=== PATIENT | female | born 1955 | race Caucasian/White ===

== ENCOUNTER 2018-10-10 07:10 | Day surgery (SDC) | payer OTHER ==
[2018-10-10] MEDS ORDERED: LACTATED RINGERS 1,000 ML IV ONE (07:15)
[2018-10-10] MEDS ORDERED: BUPIVACAINE 0.25%-EPI 1:200000 PF 30 ML VIAL ONE (07:20)
[2018-10-10] MEDS ORDERED: EPINEPHrine 1 MG/ML AMP ONE (07:22)
[2018-10-10] MEDS ORDERED: ceFAZolin 2 GM/50 ML 2 GM/50 ML BAG IV ONE (07:22)
[2018-10-10 07:54] LABS: BASOPHILS # (AUTO) 0.1 10^3/uL (0.0-0.1); EOSINOPHILS # (AUTO) 0.1 10^3/uL (0.0-0.7); EOSINOPHILS % (AUTO) 2.2 %; HGB - HEMOGLOBIN 15.1 g/dL (12.0-16.0); LYMPHOCYTES # (AUTO) 1.5 10^3/uL (1.5-3.5); LYMPHOCYTES % (AUTO) 26.6 %; MEAN CORPUSCULAR HGB CONC 34.5 g/dL (32.0-36.0); MEAN CORPUSCULAR VOLUME 92.7 fL (81.0-99.0); MEAN PLATELET VOLUME 8.7 fL (7.9-10.8); MONOCYTES # (AUTO) 0.4 10^3/uL (0.0-1.0); MONOCYTES % (AUTO) 7.6 %; NEUTROPHILS # (AUTO) 3.5 10^3/uL (1.5-6.6); NEUTROPHILS % (AUTO) 61.6 %; PLT - PLATELET COUNT 217 10^3/uL (130-450); RED BLOOD COUNT 4.72 10^6/uL (4.20-5.40); WHITE BLOOD COUNT 5.7 x10^3/uL (4.8-10.8)
[2018-10-10 08:03] LABS: CALCIUM 9.5 mg/dL (8.5-10.3); CREATININE 0.8 mg/dL (0.4-1.0)
--- NOTE | 2018-10-10 08:17 | ANESTHESIA ---
Pre-Anesthesia VS, & Labs - Diagnosis right rotator cuff tear, biceps injury, subachromial impingement, bursitis - Procedure Rotator cuff repair, shoulder arthroscopy, subacromial decompression, biceps tenodesis Vital Signs: Temp Pulse Resp BP Pulse Ox 36 C L 66 12 151/75 H 100 10/10/18 07:25 10/10/18 07:25 10/10/18 07:25 10/10/18 07:25 10/10/18 07:25 Height 5 ft 5 in Weight (kg) 83.8 kg - NPO >8 hours - Is Patient ?: No Home Medications and Allergies Allergies/Adverse Reactions: Allergies Allergy/AdvReac Type Severity Reaction Status Date / Time No Known Drug Allergies Allergy Verified 10/09/18 14:07 Anes History & Medical History - Anesthetic History Anesthesia Complications: reports: No previous complications - Medical History Cardiovascular: reports: None Pulmonary: reports: None Gastrointestinal: reports: None Urinary: reports: None Musculoskeletal: reports: None Endocrine/Autoimmune: reports: None Skin: reports: None - Surgical History General: Colonoscopy Exam General: Alert Dental: WNL Mouth Opening: Greater than 4 Fingerbreadths Mallampati classification: II Thyromental Distance: greater than 6 cm Respiratory: Lungs clear Cardiovascular: Regular rate Plan Anesthesia Type: General Consent for Procedure(s) Verified and Reviewed: Yes Code Status: Attempt Resuscitation ASA classification: 2-Mild systemic disease Is this case an emergency?: No
[2018-10-10] MEDS ORDERED: BUPIVACAINE 0.25%-EPI 1:200000 PF 30 ML VIAL SUBQ ONE ×2 (09:49)
[2018-10-10] MEDS ORDERED: fentaNYL 100 MCG/2 ML VIAL IVP ONE (11:40)
[2018-10-10] MEDS ORDERED: ONDANSETRON 4 MG/2 ML VIAL IVP ONE (11:40)
[2018-10-10] MEDS ORDERED: LIDOCAINE-PF 4% 5 ML AMP SUBQ ONE (11:40)
[2018-10-10] MEDS ORDERED: MIDAZOLAM 2 MG/2 ML VIAL IVP ONE (11:40)
[2018-10-10] MEDS ORDERED: PROPOFOL 200 MG/20 ML VIAL IVP ONE (11:40)
[2018-10-10] MEDS ORDERED: ROCURONIUM 50 MG/5 ML VIAL IVP ONE (11:40)
[2018-10-10] MEDS ORDERED: ACETAMINOPHEN 1,000 MG/100 ML 100 ML IV ONE (11:40)
[2018-10-10] MEDS ORDERED: DEXAMETHASONE 4 MG/ML VIAL IVP ONE (11:40)
[2018-10-10] MEDS ORDERED: ROPIVACAINE 0.5% PF 20 ML AMPULE EP ONE (11:40)
[2018-10-10] MEDS ORDERED: oxyCODONE 5 MG TABLET PO PRN (12:31)
[2018-10-10] MEDS ORDERED: ONDANSETRON 4 MG/2 ML VIAL IVP PRN (12:31)
--- NOTE | 2018-10-10 12:31 | IMMEDIATE POSTOPERATIVE NOTE ---
Immediate Postoperative Note - Procedure Note Procedure Date: 10/10/18 Pre-Op Diagnosis: RIGHT SHOULDER RCT, NOELLE, LH BICEPS INJURY Procedure: RIGHT SHOULDER SCOPE RCR, SAD, LH BICEPS TENODESIS Post-Op Diagnosis: SAME Primary Surgeon: Cora UMANZOR Php [employer] Developer: GAVI Anesthesia Type: General ET tube, Local, Regional block Complications: No complications Estimated Blood Loss (in cc): 25 Plan of Care: PT TOLERATED PROCEDURE WELL. INSTRUMENT AND SPONGE COUNTS CORRECT. PT TRANSFERRED TO IN STABLE CONDITION. WILL FOLLOW STD POST R SHOULDER RCR/LH BICEPS TENODESIS PROTOCOL
[2018-10-10 12:49] VITALS: BP 128/66
--- NOTE | 2018-10-11 14:30 | OPERATIVE REPORT ---
DATE OF SERVICE: 10/10/2018 Physician: Babak Gonzalez MD SURGEON: Babak Gonzalez MD RESOURCE SPECIALIST: None. ANESTHESIA PROVIDER: Mary Alice Zacarias CRNA PREOPERATIVE DIAGNOSES 1. Right shoulder rotator cuff tear, supraspinatus. 2. Right shoulder rotator cuff tear, subscapularis. 2. Right shoulder subacromial impingement. 3. Right shoulder long head biceps injury. POSTOPERATIVE DIAGNOSES 1. Right shoulder rotator cuff tear, supraspinatus. 2. Right shoulder rotator cuff tear, subscapularis. 2. Right shoulder subacromial impingement. 3. Right shoulder long head biceps injury. PROCEDURES 1. Right shoulder arthroscopic rotator cuff repair, supraspinatus in subacromial space. 2. Right shoulder arthroscopic rotator cuff repair, subscapularis in glenohumeral joint. 3. Right shoulder subacromial decompression, arthroscopic conversion to type 1 acromion. 4. Right shoulder arthroscopic long head biceps tenodesis. HISTORY OF PRESENT ILLNESS AND INDICATIONS: Patient is a 63-year-old female known to have a left shoulder rotator cuff and associated injuries. She was indicated for operative treatment. Please see previous discussion in the clinic with risks, benefits, and alternatives reviewed. These are again highlighted with the patient and the patient's in the preoperative care unit. Their questions are answered. Patient verbalized understanding of the above and verbalized her wish to proceed with operative treatment. Informed consent was given. INTRAOPERATIVE FINDINGS: Patient was noted to have a partially torn superior aspect of the subscapularis. Long head biceps was significantly frayed and subluxed. Anterior aspect of the supraspinatus had a full-thickness tear. Subacromial space shows fibrosis, some bursitis, and downsloping of the anterior aspect of the acromion. PROCEDURE: On 10/10/2018, patient is identified in the preoperative care unit. She identifies her right shoulder as the operative site. This is signed by the operating surgeon. Patient receives ultrasound-guided right side regional block by Anesthesia, and then is brought to the operating room, where general anesthesia is administered. Head, neck, and extremities placed in anatomically comfortable and safe positions after the patient is placed in a left side down lateral decubitus position with appropriately placed axillary roll to avoid encumbrance of the axilla. Down leg is gel padded. SCD boots are in place. After safe positioning, patient's right upper extremity is draped out, then pre- scrubbed with Hibiclens solution, and then prepped and draped in the usual sterile fashion. A combination of 5, 10, or 15 pounds of traction are used during various portions of the case. At this point, surgical pause identifies the right shoulder as the operative site. Local anesthetic is infused posteriorly, anteriorly, and laterally. Small stab incision made posteriorly. Scope is introduced into the glenohumeral joint. Outside-in portal is used to create anterior portal, and then the undersurface of the rotator cuff tear is debrided. The biceps is then tagged using a #2 FiberWire and a FastPass Scorpion device. This is followed by preparing the subscapularis torn portion with shaving the end to freshen this up for biologic response. The footprint is then shaved as well, and then a horizontal mattress suture is placed using the Scorpion device. This is followed by punching and then placement of a 5.5 BioComposite SwiveLock into the rotator cuff footprint, thereby re-apposing the superior border of the subscapularis to its near anatomic footprint. Suture limbs are cut. This is noted to have good integrity of this repair, and then attention is directed towards the subacromial space. At this point, a lateral incision is made. A subacromial decompression is performed using a combination of mechanical shaver, arthroscopic heating device with appropriate flow to avoid thermal injury, and then a lamont to convert the anterior aspect of the acromion to a type 1. At this point, the edge of the rotator cuff is debrided sharply using a meniscal basket, and then the biceps is identified through the hole in the rotator cuff. The rotator cuff footprint and the superior aspect of the bicipital groove are then prepared using a shaver and ultimately a lamont to freshly bleeding bone, at which point, the biceps tendon is brought through an anterolateral auxiliary incision, and then whipstitch #2 FiberWire is placed. This is sized to be 7-1/2, at which point, a size 8 reamer and drill pin are placed in the superior aspect of the bicipital groove, and then using an 8 mm SwiveLock device, the biceps is pushed into this biceps socket, followed by fixation using the interference fit of the SwiveLock. This fixes the biceps nicely in the bicipital groove and the suture limbs are cut. The integrity of this repair is noted to be good. At this point, attention is directed towards rotator cuff repair, where a triple-loaded anchor is placed in the rotator cuff after punching. The anchor is then noted to be in stable, and then 3 sutures are passed, the first anterior and middle are passed in a simple suture-type fashion. The posterior is placed in a horizontal mattress-type fashion. These are tied in reverse order, thereby re-opposing the rotator cuff to its near anatomic footprint. This is probed and noted to be stable. The subacromial space is copiously irrigated and noted to be free of loose debris, and then the instruments are removed, subacromial space evacuated, local anesthetic is infused in the soft tissues, and then arthroscopic portals are closed using interrupted nylon suture. Skin is washed and dried. Xeroform dressing is applied. Dry sterile dressing is applied. Micropore tape is applied. Patient is placed in abductor pillow sling. Patient tolerated the procedure well. Instrument and sponge counts were correct. Patient was transferred to recovery room in stable condition. Patient's is contacted in the waiting room. The case is discussed, arthroscopic photos reviewed, postoperative instructions highlighted, perioperative medication plan reviewed. Previously, patient denied any contraindication to medication plan. She will be on perioperative antibiotics. Advised to take [id number] bowel regimen medication while on narcotic analgesics and given a prescription for narcotic analgesics. Perioperative antibiotics for 24 hours only. Patient will follow up in 10-14 days. She will follow standard postoperative rotator cuff and biceps protocol, which is reviewed. Patient's 's questions are answered. He verbalizes understanding and satisfaction with plan as outlined. FLUIDS: 500 mL lactated Ringer's. COMPRESSION DEVICE: Bilateral calf SCD boots. PREOPERATIVE ANTIBIOTICS: Weight-based IV Ancef. ORTHOPEDIC IMPLANTS 1. Arthrex 8 x 19 mm SwiveLock. 2. Arthrex 5.5 x 19 mm SwiveLock. 3. 5.5 x 14.7 Arthrex Triple Play anchor. LOCAL ANESTHETIC: 20 mL 0.25% Marcaine with epinephrine local. TD: 10/11/2018 14:08 [facility]
== END 2018-10-10 07:11 | disposition home or self-care (01) ==
LOC: SDS 07:10
PROVIDERS: ATTEND Orthopaedic Surgery Sports Medicine
PROC: 0LS14ZZ Reposition Right Shoulder Tendon, Percutaneous Endoscopic Approach (ICD-10-PCS; 2018-10-10)
PROC: 0RNJ4ZZ Release Right Shoulder Joint, Percutaneous Endoscopic Approach (ICD-10-PCS; 2018-10-10)
PROC: 0RBJ4ZZ Excision of Right Shoulder Joint, Percutaneous Endoscopic Approach (ICD-10-PCS; 2018-10-10)
PROC: 0LQ14ZZ Repair Right Shoulder Tendon, Percutaneous Endoscopic Approach (ICD-10-PCS; principal; 2018-10-10 09:00)
DX: M75.101 Unspecified rotator cuff tear or rupture of right shoulder, not specified as traumatic (principal); M75.41 Impingement syndrome of right shoulder; M75.51 Bursitis of right shoulder; Z87.891 Personal history of nicotine dependence
CPT/HCPCS: 29826; 29827; 29828; 80048; 85025; 93005; C1713; J0131; J0690; J7120